=== PATIENT | male | born 1970 | race Caucasian/White ===

== ENCOUNTER 2018-08-05 09:05 | Day surgery (SDC) | payer OTHER ==
[~2018-08-05 09:05] MED LIST: Buffered Lidocaine 1% SYRIN* 1 ML/SYRINGE INTRADERM ONE; Famotidine IV* 10 MG/ML 2 ML (20 mg) IV ONE; Lactated Ringers 1000 ML Bag* 1,000 ML IV SCH
[2018-08-05] MEDS ORDERED: Famotidine IV* 10 MG/ML 2 ML (20 mg) ONE (10:52)
[2018-08-05] MEDS ORDERED: ceFAZolin 2 GM in NS PREMIX(*) 2 GM/100 ML BAG IVPB ONE (10:52)
[2018-08-05] MEDS ORDERED: Midazolam* 1 MG/ML 2 ML VIAL (2 MG) ONE (11:33)
[2018-08-05] MEDS ORDERED: fentaNYL* 50 MCG/ML 2 ML VIAL (100 MCG VIAL) ONE ×2 (11:33→15:11)
[2018-08-05] MEDS ORDERED: hydrALAZINE IV* 20 MG/ML VIAL ONE (12:33)
[2018-08-05] MEDS ORDERED: Propofol* 10 MG/ML 20 ML BTL ONE ×2 (13:15→13:19)
[2018-08-05] MEDS ORDERED: Lidocaine 2% PF * 5 ML VIAL ONE (13:15)
[2018-08-05] MEDS ORDERED: Rocuronium* 10 MG/ML VIAL ONE (13:20)
[2018-08-05] MEDS ORDERED: Glycopyrrolate IV* 0.2 MG/ML 1 ML VIAL ONE (14:47)
[2018-08-05] MEDS ORDERED: Neostigmine Methylsulfate* 1 MG/ML 10 ML VIAL (1 mg/ml) ONE (14:47)
[2018-08-05] MEDS ORDERED: Ketorolac INJ* 30 MG/ML 1 ML VIAL ONE (15:11)
[2018-08-05] MEDS ORDERED: Ondansetron INJ* 2 MG/ML VIAL IV PRN (15:29)
[2018-08-05] MEDS ORDERED: fentaNYL* 50 MCG/ML 2 ML VIAL (100 MCG VIAL) IV PRN (15:29)
[2018-08-05] MEDS ORDERED: Ketorolac INJ* 30 MG/ML 1 ML VIAL IV PRN (15:29)
[2018-08-05] MEDS ORDERED: Naloxone* 0.4 MG/ML 1 ML VIAL IV PRN (15:29)
[2018-08-05] MEDS ORDERED: HYDROcodone/ACETAMIN 5-325 MG* 1 TAB ONE (15:46)
[2018-08-05] MEDS ORDERED: Ondansetron INJ* 2 MG/ML VIAL ONE (15:47)
[2018-08-05 16:38] VITALS: BP 140/78
--- NOTE | 2018-08-06 00:18 | OP ---
DATE OF OPERATION: 08/05/18 - [facility] DATE OF : 72 SURGEON: Dandy Devries MD HOUSEKEEPER HOME: [facility] ANESTHESIA: Regional and general. PRE-OP DIAGNOSES: 1. Left shoulder SLAP lesion. 2. Anterior instability. POST-OP DIAGNOSES: 1. Left shoulder SLAP lesion. 2. Anterior instability. OPERATIVE PROCEDURE: 1. Left shoulder arthroscopy. 2. SLAP lesion repair. 3. Arthroscopic capsulorrhaphy. ESTIMATED BLOOD LOSS: Negligible. COMPLICATIONS: None. SUMMARY: Mr. Yepez is a 48-year-old male who had an episode of his right shoulder sliding out of place at work back on 05/27/18. He had very specific troubles, trying to get to rehab after this as the shoulder felt as if it was sliding out of place repeatedly. An MRI did reveal a SLAP lesion. I discussed with him that a shoulder arthroscopy, SLAP repair and capsulorrhaphy should work well to decrease that feeling of instability and try to get this to heal, so that the shoulder would be more stable. Risks of surgery such as continued instability, scar formation, stiffness, loss of motion were some of the risks discussed. He had wished to proceed. DESCRIPTION OF PROCEDURE: The patient had a block placed in the holding area and was brought back to the OR. General endotracheal anesthesia was established. He has been sat up in the beach chair position. Care was taken to make sure that the home visitor home base head start was well placed as he did not sit well in it and that his ears were nice and free. Right arm was elevated on an armboard and the cubital tunnel was also nice and free. Left shoulder area was prepped and then draped. Portal sites were preinjected using 5 cc of 0.25% Marcaine with epinephrine and a standard posterior portal was made first using an 11 blade. Blunt trocar and the sheath was easily introduced into the shoulder and a camera was introduced into the sheath. Shoulder was allowed to insufflate and pulling back damage along the anterior labrum was immediately evident. Pictures were taken. Under direct vision using an outside-in technique, anterior portal was established and shaver was introduced. This was used to clean up the frayed and torn up edges of the labrum. I was also able to push the superior labrum up and over the top of the glenoid and then used the shaver to scuff that area, so that I could get some good healing. Port was then placed into the anterior portal and 3.5 mm anchor with a #2 FiberWire was then placed at approximately the 11:30 position. Nice bite was obtained and using the high angle [place], I was able to pickle processor the suture, pull it around and sew down the superior labrum. Nice repair was obtained and I could not pull it up anymore. This also had helped a little bit along the anterior rim. Similarly , the anterior rim was scuffed a little bit with the shaver, so that I could get a little bit of a healing response and anchors were placed and then passed through the capsule. I could pull the capsule all the way up as there was quite a bit of redundancy in the capsule. Nice tightening was obtained. Final pictures were taken and all instrumentation was removed. Portal sites were closed using 4-0 nylon sutures and a sterile dressing and a shoulder immobilizer were applied in the OR. The patient was then extubated in the OR and was stable on transfer to the recovery room. DISPOSITION/DISCHARGE SUMMARY: Mr. Yepez is a 48-year-old male who just underwent a left shoulder arthroscopy. He tolerated the procedure well. There were no complications. He is currently rolling towards the recovery room. Once he can tolerate p.o., has his pain well controlled, and can void, he will be discharged home. Prescription for Hurst will be e-scribed in. He has instructions to keep his dressing clean, dry, and intact for the next 3 days, but after that, may take his dressing down, cover his sutures with Band-Aid, may shower, wash and get it wet, but should not soak it. I would like to see him in the office in approximately 10 to 14 days to remove his sutures and make sure he is doing well. If there are any problems, there are instructions to give the office a call. He may continue to do activities from his shoulders to his knees directly in front such as working on a computer, reading a book, doing a crossword. He should not reach out to the side, nor above shoulder level. He may lift the weight of a coffee mug, but not the coffee pot. If there are any problems, there are instructions to give the office a call. [id number]/[facility] #: [id number] [facility] HOSPITALRitchie
== END 2018-08-05 16:51 | disposition home or self-care (01) ==
LOC: OR 09:05
PROVIDERS: ATTEND Orthopaedic Surgery
DX: S43.492A Other sprain of left shoulder joint, initial encounter (principal); S43.015A Anterior dislocation of left humerus, initial encounter; M24.412 Recurrent dislocation, left shoulder; G89.18 Other acute postprocedural pain; I10 Essential (primary) hypertension; X58.XXXA Exposure to other specified factors, initial encounter; Y92.159 Unspecified place in reform school as the place of occurrence of the external cause
CPT/HCPCS: C1713; J0360; J0690; J1885; J2250; J2405; J2704; J2710; J3010